=== PATIENT | male | born 1985 | race Caucasian/White ===

== ENCOUNTER 2017-08-08 22:30 | Inpatient (IN) | payer SELFPAY ==
[~2017-08-08] VITALS: Ht 152.4 cm; Wt 65.8 kg
[2017-08-09 00:42] LABS: HEMATOCRIT. 33.5 % (42.0-52.0); HEMOGLOBIN. 10.9 g/dL (14.0-18.0); MEAN CORPUSCULAR HEMOGLOBIN 30.9 pg (28.0-32.0); MEAN CORPUSCULAR VOLUME 95.1 fL (80.0-94.0); MEAN PLATELET VOLUME 8.3 fl (7.4-10.4); RED BLOOD CELL COUNT 3.52 mill/uL (4.7-6.1); RED CELL DISTRIBUTION WIDTH 22.2 % (11.6-14.6)
[2017-08-09 00:44] LABS: CHLORIDE 101 mEq/L (98-107)
[2017-08-09 00:46] LABS: INR 2.5; PROTHROMBIN TIME 26.2 sec (9.4-11.6)
[2017-08-09 00:53] LABS: CARBON DIOXIDE 24 mEq/L (21-32); ETHANOL BLOOD < 10 mg/dL
[2017-08-09] MEDS ORDERED: SODIUM CHLORIDE 0.9% 1,000 ML IV ONE (01:15)
[2017-08-09] MEDS ORDERED: CEFTRIAXONE 1 G PREMIX 50 ML IV ONE (01:15)
[2017-08-09] MEDS ORDERED: KETOROLAC 30MG/ML VIAL IV ONE (01:30)
[2017-08-09 02:05] LABS: CLARITY URINE TURBID (CLEAR); COLOR URINE DARK YELLOW (YELLOW); KETONES URINE NEGATIVE (NEGATIVE); LEUKOCYTE ESTERASE URINE 1+ (NEGATIVE); NITRITE URINE POSITIVE (NEGATIVE); OCCULT BLOOD URINE 2+ (NEGATIVE); PROTEIN URINE 1+ (NEGATIVE); SPECIFIC GRAVITY URINE 1.023 (1.005-1.030)
[2017-08-09 02:28] LABS: *AMPHETAMINES SCREEN URINE NEGATIVE (NEGATIVE); *BARBITURATES SCREEN URINE NEGATIVE (NEGATIVE); *BENZODIAZEPINES SCREEN URINE NEGATIVE (NEGATIVE); *COCAINE SCREEN URINE NEGATIVE (NEGATIVE); CANNABINOID URINE SCREEN NEGATIVE (NEGATIVE); OPIATES URINE SCREEN NEGATIVE (NEGATIVE); PHENCYCLIDINE URINE SCREEN NEGATIVE (NEGATIVE)
[2017-08-09 02:41] LABS: METHADONE URINE SCREEN NEGATIVE (NEGATIVE)
[2017-08-09 06:45] LABS: PLATELET ESTIMATE SLIGHTLY DECREASED
[2017-08-09 06:46] LABS: PLATELET 97 x1000/uL (130-400)
[2017-08-09] MEDS ORDERED: DIPHENHYDRAMINE 50MG/ML VIAL IV PRN (11:45)
[2017-08-09] MEDS ORDERED: GUAIFENESIN 200MG/10ML SUGAR FREE UDC PO PRN (11:45)
[2017-08-09] MEDS ORDERED: NA PHOS,M-B/NA PHOS,DI-BA ENEMA 118ML PR PRN (11:45)
[2017-08-09] MEDS ORDERED: ONDANSETRON HCL 4MG/2ML VIAL IV PRN (11:45)
[2017-08-09] MEDS ORDERED: ACETAMINOPHEN 650MG/20.3ML UDC GT PRN (11:45)
[2017-08-09] MEDS ORDERED: CLONIDINE 0.1MG TABLET PO PRN (11:45)
[2017-08-09] MEDS ORDERED: MORPHINE SULFATE 2 MG/ML CPJ (NOT FOR IM USE) IV PRN (11:45)
[2017-08-09] MEDS ORDERED: IPRATROPIUM/ALBUTEROL 0.5-3(2.5)MG/3ML NEB INH PRN (11:45)
[2017-08-09] MEDS ORDERED: ACETAMINOPHEN 650MG SUPP PR PRN (11:45)
[2017-08-09] MEDS ORDERED: MAGNESIUM/ALUMINUM HYDROXIDE/SIMETHICONE 30ML UDC PO PRN (11:45)
[2017-08-09] MEDS ORDERED: DOCUSATE SODIUM 100MG CAPSULE PO PRN (11:45)
[2017-08-09] MEDS: THIAMINE HCL 100MG TABLET PO SCH (14:36)
[2017-08-09] MEDS: SODIUM CHLORIDE 0.9% INJ 3ML FLUSH IVF SCH (14:36)
[2017-08-09 15:15] VITALS: BP 122/76
[2017-08-09] MEDS ORDERED: INFLUENZA VIRUS VACCINE 0.5ML SYR IM ONE (16:00)
[2017-08-09] MEDS: CEFTRIAXONE 1 G PREMIX 50 ML IV SCH (17:26)
[2017-08-09 20:00] VITALS: BP 113/74
[2017-08-09 20:22] LABS: HEMATOCRIT. 32.7 % (42.0-52.0); HEMOGLOBIN. 10.8 g/dL (14.0-18.0); MEAN CORPUSCULAR HEMOGLOBIN 31.6 pg (28.0-32.0); MEAN CORPUSCULAR VOLUME 95.9 fL (80.0-94.0); MEAN PLATELET VOLUME 8.6 fl (7.4-10.4); PLATELET 102 x1000/uL (130-400); RED BLOOD CELL COUNT 3.41 mill/uL (4.7-6.1); RED CELL DISTRIBUTION WIDTH 22.3 % (11.6-14.6)
[2017-08-09 21:01] LABS: PLATELET ESTIMATE SLIGHTLY DECREASED
[2017-08-09 21:09] LABS: CREATINE KINASE 25 IU/L (39-308); TROPONIN I < 0.02 ng/mL (0.00-0.04)
[2017-08-09 21:23] LABS: CARBON DIOXIDE 20 mEq/L (21-32); CHLORIDE 103 mEq/L (98-107)
[2017-08-10] VITALS: BP 128/70
[2017-08-10 04:00] VITALS: BP 118/68
[2017-08-10 06:32] LABS: HEMATOCRIT. 30.7 % (42.0-52.0); HEMOGLOBIN. 10.4 g/dL (14.0-18.0); MEAN CORPUSCULAR HEMOGLOBIN 32.1 pg (28.0-32.0); MEAN CORPUSCULAR VOLUME 94.5 fL (80.0-94.0); RED BLOOD CELL COUNT 3.25 mill/uL (4.7-6.1); RED CELL DISTRIBUTION WIDTH 22.2 % (11.6-14.6)
[2017-08-10 07:56] LABS: CHLORIDE 105 mEq/L (98-107)
[2017-08-10 08:00] VITALS: BP 102/65
[2017-08-10 08:33] LABS: MEAN PLATELET VOLUME 8.3 fl (7.4-10.4); PLATELET 92 x1000/uL (130-400)
[2017-08-10 09:00] LABS: CARBON DIOXIDE 18 mEq/L (21-32); CREATINE KINASE 18 IU/L (39-308); HDL CHOLESTEROL 10 mg/dL (40-59); LDL CHOLESTEROL 44 mg/dL (5-100); TROPONIN I < 0.02 ng/mL (0.00-0.04)
[2017-08-10] MEDS: FOLIC ACID 1MG TABLET PO SCH (09:57)
[2017-08-10] MEDS: THIAMINE HCL 100MG TABLET PO SCH (09:58)
[2017-08-10 12:00] VITALS: BP 105/68
[2017-08-10 13:45] LABS: PLATELET ESTIMATE SLIGHTLY DECREASED
[2017-08-10] MEDS: PIPERONYL/PYRETHRINS (RID)120 ML SHAMPOO TOP NR ×2 (14:30→15:15)
[2017-08-10] MEDS: AZITHROMYCIN 500 MG in DEXT 5% WATER 250 ML IV SCH (15:27)
[2017-08-10 16:00] VITALS: BP 103/70
[2017-08-10] MEDS ORDERED: VANCOMYCIN 1250MG in DEXTROSE 5% WATER 250ML IV NR (16:00)
[2017-08-10] MEDS ORDERED: MORPHINE SULFATE 4 MG/ML CPJ (NOT FOR IM USE) IV PRN (16:02)
[2017-08-10] MEDS: HYDROCODONE/ACETAMINOPHEN 5/325MG TABLET PO PRN (16:42)
[2017-08-10 20:00] VITALS: BP 118/74
[2017-08-10] MEDS: CEFTRIAXONE 1 G PREMIX 50 ML IV SCH (20:06)
[2017-08-11] VITALS: BP 102/64
[2017-08-11 04:00] VITALS: BP 104/69
[2017-08-11] MEDS: VANCOMYCIN 1 G PREMIX 200 ML IV SCH ×2 (04:45→18:41)
[2017-08-11] MEDS: SODIUM CHLORIDE 0.9% INJ 3ML FLUSH IVF SCH ×2 (04:54→18:01)
[2017-08-11 08:00] VITALS: BP 97/60
[2017-08-11] MEDS: THIAMINE HCL 100MG TABLET PO SCH (09:38)
[2017-08-11] MEDS: FOLIC ACID 1MG TABLET PO SCH (09:38)
[2017-08-11] MEDS ORDERED: PHYTONADIONE 10MG/ML AMP SUBCUT NR (10:30)
[2017-08-11 11:23] LABS: HEMATOCRIT. 31.3 % (42.0-52.0); HEMOGLOBIN. 10.1 g/dL (14.0-18.0); MEAN CORPUSCULAR VOLUME 96.1 fL (80.0-94.0); MEAN PLATELET VOLUME 8.4 fl (7.4-10.4); PLATELET 94 x1000/uL (130-400); RED BLOOD CELL COUNT 3.26 mill/uL (4.7-6.1); RED CELL DISTRIBUTION WIDTH 22.2 % (11.6-14.6)
[2017-08-11 11:30] LABS: INR 2.7
[2017-08-11 11:57] LABS: CARBON DIOXIDE 19 mEq/L (21-32); CHLORIDE 106 mEq/L (98-107)
[2017-08-11 12:00] VITALS: BP 102/65
[2017-08-11] MEDS: AZITHROMYCIN 500 MG in DEXT 5% WATER 250 ML IV SCH (14:11)
[2017-08-11] MEDS: HYDROCODONE/ACETAMINOPHEN 5/325MG TABLET PO PRN (14:12)
[2017-08-11 16:00] VITALS: BP 98/65
[2017-08-11] MEDS: CEFTRIAXONE 1 G PREMIX 50 ML IV SCH (18:05)
[2017-08-11 20:00] VITALS: BP 102/64
[2017-08-11 21:29] LABS: PLATELET ESTIMATE DECREASED
[2017-08-12 00:23] VITALS: BP 101/62
[2017-08-12 04:00] VITALS: BP 112/74
[2017-08-12 08:00] VITALS: BP 104/63
[2017-08-12] MEDS: FOLIC ACID 1MG TABLET PO SCH (09:07)
[2017-08-12] MEDS: THIAMINE HCL 100MG TABLET PO SCH (09:07)
[2017-08-12 10:21] LABS: HEMATOCRIT. 30.2 % (42.0-52.0); HEMOGLOBIN. 9.7 g/dL (14.0-18.0); MEAN CORPUSCULAR HEMOGLOBIN 30.9 pg (28.0-32.0); MEAN CORPUSCULAR VOLUME 95.8 fL (80.0-94.0); RED BLOOD CELL COUNT 3.15 mill/uL (4.7-6.1); RED CELL DISTRIBUTION WIDTH 21.3 % (11.6-14.6)
[2017-08-12 10:46] LABS: CARBON DIOXIDE 21 mEq/L (21-32); CHLORIDE 104 mEq/L (98-107)
[2017-08-12 11:06] LABS: MEAN PLATELET VOLUME 8.3 fl (7.4-10.4); PLATELET 103 x1000/uL (130-400); PLATELET ESTIMATE SLIGHTLY DECREASED
[2017-08-12] MEDS: VANCOMYCIN 1 G PREMIX 200 ML IV SCH (11:21)
[2017-08-12 12:00] VITALS: BP 112/77
[2017-08-12] MEDS: AZITHROMYCIN 500 MG in DEXT 5% WATER 250 ML IV SCH (13:37)
[2017-08-12] MEDS: SODIUM CHLORIDE 0.9% INJ 3ML FLUSH IVF SCH ×2 (13:37→22:09)
[2017-08-12] MEDS ORDERED: POTASSIUM CHLORIDE 20MEQ TABLET SR PO NR (15:30)
[2017-08-12] MEDS ORDERED: PHYTONADIONE 10MG/ML AMP IM NR (15:45)
[2017-08-12 16:00] VITALS: BP 112/77
[2017-08-12] MEDS: PIPERACILLIN/TAZ 2.25G PREMIX 50 ML IV SCH (16:33)
[2017-08-12 16:34] LABS: INR 2.5; PARTIAL THROMBOPLASTIN TIME 47.9 sec (23.4-31.0); PROTHROMBIN TIME 25.6 sec (9.4-11.6)
[2017-08-12 20:00] VITALS: BP 112/69
[2017-08-12] MEDS: VANCOMYCIN 750 MG PREMIX 150 ML IV SCH (22:09)
[2017-08-13] VITALS (7 sets, daily range): BP systolic 95–123; BP diastolic 57–83
[2017-08-13] MEDS: PIPERACILLIN/TAZ 2.25G PREMIX 50 ML IV SCH ×3 (01:52→18:20)
[2017-08-13] MEDS: ACETAMINOPHEN 325MG TABLET PO PRN (02:19)
[2017-08-13] MEDS: SODIUM CHLORIDE 0.9% INJ 3ML FLUSH IVF SCH ×3 (05:35→23:40)
[2017-08-13 07:13] LABS: INR 2.4; PROTHROMBIN TIME 25.4 sec (9.4-11.6)
[2017-08-13 07:35] LABS: HEMATOCRIT. 31.1 % (42.0-52.0); HEMOGLOBIN. 10.5 g/dL (14.0-18.0); MEAN CORPUSCULAR HEMOGLOBIN 32.5 pg (28.0-32.0); MEAN CORPUSCULAR VOLUME 96.4 fL (80.0-94.0); MEAN PLATELET VOLUME 8.4 fl (7.4-10.4); PLATELET 109 x1000/uL (130-400); RED BLOOD CELL COUNT 3.22 mill/uL (4.7-6.1); RED CELL DISTRIBUTION WIDTH 21.3 % (11.6-14.6)
[2017-08-13 08:37] LABS: TOTAL IRON BINDING CAPACITY 124 ug/dL (250-450)
[2017-08-13 08:43] LABS: CARBON DIOXIDE 19 mEq/L (21-32); CHLORIDE 105 mEq/L (98-107)
[2017-08-13] MEDS: VANCOMYCIN 750 MG PREMIX 150 ML IV SCH ×2 (08:51→23:40)
[2017-08-13] MEDS: FOLIC ACID 1MG TABLET PO SCH (08:55)
[2017-08-13] MEDS: THIAMINE HCL 100MG TABLET PO SCH (08:55)
[2017-08-13 08:57] LABS: AMMONIA 58 uMol/L (<32)
[2017-08-13 09:55] LABS: PLATELET ESTIMATE DECREASED
[2017-08-13 11:45] LABS: VITAMIN B12 SERUM > 2000.0 pg/mL (211-911)
[2017-08-13] MEDS: LACTULOSE 20G/30ML UDC PO SCH (12:56)
[2017-08-13 15:12] LABS: FERRITIN 196 ng/mL (22-322)
[2017-08-13 17:01] LABS: BG BASE EXCESS -5.2 mmol/L (-2.0-2.0); BG CARBOXYHEMOGLOBIN 0.9 % (0.5-1.5); BG DEOXYHEMOGLOBIN 3.1 % (0.0-5.0); BG FRACTION INSPIRED OXYGEN 28; BG HCO3 ACT 18.3 mmol/L (22.0-26.0); BG METHEMOGLOBIN 0.1 % (0.0-1.5); BG OXYGEN SATURATION 96.9 % (92.0-98.5); BG OXYHEMOGLOBIN 95.9 % (94.0-97.0); BG PCO2 29.5 mmHg (35.0-45.0); BG PH 7.411 (7.350-7.450); BG PO2 90.9 mmHg (75.0-100.0); BG SAMPLE SITE RIGHT BRACHIAL; BG TOTAL HEMOGLOBIN 11.3 g/dL (12.0-18.0); BG VENT MODE NASAL CANNULA
[2017-08-14] MEDS: PIPERACILLIN/TAZ 2.25G PREMIX 50 ML IV SCH ×3 (01:59→18:02)
[2017-08-14 04:52] VITALS: BP 113/74
[2017-08-14 08:00] VITALS: BP 130/60
[2017-08-14] MEDS: FOLIC ACID 1MG TABLET PO SCH (10:33)
[2017-08-14] MEDS: LACTULOSE 20G/30ML UDC PO SCH (10:33)
[2017-08-14] MEDS: THIAMINE HCL 100MG TABLET PO SCH (10:33)
[2017-08-14 12:00] VITALS: BP 120/80
[2017-08-14 12:36] LABS: MEAN CORPUSCULAR HEMOGLOBIN 32.3 pg (28.0-32.0); MEAN CORPUSCULAR VOLUME 96.6 fL (80.0-94.0); MEAN PLATELET VOLUME 8.3 fl (7.4-10.4); PLATELET 108 x1000/uL (130-400); RED BLOOD CELL COUNT 3.11 mill/uL (4.7-6.1); RED CELL DISTRIBUTION WIDTH 21.5 % (11.6-14.6)
[2017-08-14 12:45] LABS: INR 1.9; PARTIAL THROMBOPLASTIN TIME 42.7 sec (23.4-31.0); PROTHROMBIN TIME 19.9 sec (9.4-11.6)
[2017-08-14 12:56] LABS: AMMONIA <10 uMol/L (<32)
[2017-08-14 13:02] LABS: CARBON DIOXIDE 20 mEq/L (21-32); CHLORIDE 104 mEq/L (98-107)
[2017-08-14 13:42] LABS: PLATELET ESTIMATE SLIGHTLY DECREASED
[2017-08-14] MEDS: SODIUM CHLORIDE 0.9% INJ 3ML FLUSH IVF SCH ×2 (13:58→22:00)
[2017-08-14] MEDS: VANCOMYCIN 750 MG PREMIX 150 ML IV SCH (13:58)
[2017-08-14] MEDS ORDERED: LIDOCAINE HCL 1% 20ML VIAL (Pyxis) INJ ONE (14:45)
[2017-08-14] MEDS ORDERED: SODIUM BICARBONATE 4% (2.4MEQ) 5ML VIAL IV ONE (14:46)
[2017-08-15] MEDS: PIPERACILLIN/TAZ 2.25G PREMIX 50 ML IV SCH ×3 (02:17→17:31)
[2017-08-15 04:15] LABS: PROTHROMBIN TIME 21.2 sec (9.4-11.6)
[2017-08-15 04:21] LABS: AMMONIA < 10 uMol/L (<32)
[2017-08-15 04:23] LABS: CARBON DIOXIDE 21 mEq/L (21-32); CHLORIDE 105 mEq/L (98-107)
[2017-08-15] MEDS: SODIUM CHLORIDE 0.9% INJ 3ML FLUSH IVF SCH ×3 (05:33→23:11)
[2017-08-15 08:00] VITALS: BP 96/46
[2017-08-15] MEDS: FOLIC ACID 1MG TABLET PO SCH (09:32)
[2017-08-15] MEDS: THIAMINE HCL 100MG TABLET PO SCH (09:32)
[2017-08-15] MEDS: LACTULOSE 20G/30ML UDC PO SCH (09:33)
[2017-08-15 11:15] LABS: INR 2.3; PARTIAL THROMBOPLASTIN TIME 47.6 sec (23.4-31.0)
[2017-08-15 12:00] VITALS: BP 102/62
[2017-08-15 12:02] LABS: HEMATOCRIT. 29.6 % (42.0-52.0); HEMOGLOBIN. 9.6 g/dL (14.0-18.0); MEAN CORPUSCULAR HEMOGLOBIN 31.7 pg (28.0-32.0); MEAN CORPUSCULAR VOLUME 97.9 fL (80.0-94.0); MEAN PLATELET VOLUME 8.6 fl (7.4-10.4); PLATELET 99 x1000/uL (130-400); RED BLOOD CELL COUNT 3.02 mill/uL (4.7-6.1); RED CELL DISTRIBUTION WIDTH 21.1 % (11.6-14.6)
[2017-08-15 12:09] LABS: CHLORIDE 106 mEq/L (98-107)
[2017-08-15 12:17] LABS: CARBON DIOXIDE 21 mEq/L (21-32)
[2017-08-15 16:00] VITALS: BP 93/55
[2017-08-15] MEDS ORDERED: POTASSIUM CHLORIDE 20MEQ TABLET SR PO NR (17:00)
[2017-08-15 20:00] VITALS: BP 93/58
[2017-08-15] MEDS: VANCOMYCIN 1 G PREMIX 200 ML IV SCH (23:10)
[2017-08-16] VITALS: BP 109/62
[2017-08-16] MEDS: PIPERACILLIN/TAZ 2.25G PREMIX 50 ML IV SCH ×3 (03:22→18:04)
[2017-08-16 04:00] VITALS: BP 97/62
[2017-08-16] MEDS: SODIUM CHLORIDE 0.9% INJ 3ML FLUSH IVF SCH ×2 (05:56→15:43)
[2017-08-16 07:03] LABS: HEMATOCRIT 28.6 % (42.0-52.0); HEMOGLOBIN 9.6 g/dL (14.0-18.0); MEAN CORPUSCULAR HEMOGLOBIN 32.5 pg (28.0-32.0); MEAN CORPUSCULAR VOLUME 96.5 fL (80.0-94.0); RED BLOOD CELL COUNT 2.96 mill/uL (4.7-6.1); RED CELL DISTRIBUTION WIDTH 20.8 % (11.6-14.6)
[2017-08-16 07:14] LABS: PLATELET 94 x1000/uL (130-400)
[2017-08-16 08:00] VITALS: BP 98/57
[2017-08-16 08:37] LABS: AMMONIA < 10 uMol/L (<32)
[2017-08-16] MEDS: FOLIC ACID 1MG TABLET PO SCH (09:38)
[2017-08-16] MEDS: LACTULOSE 20G/30ML UDC PO SCH (09:38)
[2017-08-16] MEDS: THIAMINE HCL 100MG TABLET PO SCH (09:39)
[2017-08-16 12:00] VITALS: BP 102/64
[2017-08-16 14:32] LABS: PLATELET ESTIMATE SLIGHTLY DECREASED
[2017-08-16 16:00] VITALS: BP 101/62
[2017-08-16 20:00] VITALS: BP 106/63
[2017-08-17] VITALS: BP 103/63
[2017-08-17] MEDS: SODIUM CHLORIDE 0.9% INJ 3ML FLUSH IVF SCH ×3 (00:07→23:34)
[2017-08-17] MEDS: VANCOMYCIN 1 G PREMIX 200 ML IV SCH ×2 (00:07→23:29)
[2017-08-17] MEDS: PIPERACILLIN/TAZ 2.25G PREMIX 50 ML IV SCH ×3 (01:53→17:42)
[2017-08-17 04:00] VITALS: BP 95/59
[2017-08-17 06:25] LABS: HEMATOCRIT 29.2 % (42.0-52.0); HEMOGLOBIN 9.6 g/dL (14.0-18.0); MEAN CORPUSCULAR HEMOGLOBIN 31.8 pg (28.0-32.0); PLATELET 89 x1000/uL (130-400); RED BLOOD CELL COUNT 3.01 mill/uL (4.7-6.1); RED CELL DISTRIBUTION WIDTH 20.1 % (11.6-14.6)
[2017-08-17 07:42] LABS: AMMONIA < 10 uMol/L (<32)
[2017-08-17 08:00] VITALS: BP 100/61
[2017-08-17] MEDS: LACTULOSE 20G/30ML UDC PO SCH (09:35)
[2017-08-17] MEDS: FOLIC ACID 1MG TABLET PO SCH (09:35)
[2017-08-17] MEDS: THIAMINE HCL 100MG TABLET PO SCH (09:37)
[2017-08-17 12:00] VITALS: BP 102/64
[2017-08-17] MEDS ORDERED: FLUCONAZOLE 200MG TABLET PO NR (14:30)
[2017-08-17 16:00] VITALS: BP 100/62
[2017-08-17] MEDS ORDERED: PHYTONADIONE 10MG/ML AMP PO NR (16:13)
[2017-08-17 20:00] VITALS: BP 114/64
[2017-08-17] MEDS: ACETAMINOPHEN 325MG TABLET PO PRN (20:30)
[2017-08-18] VITALS: BP 98/59
[2017-08-18] MEDS: VANCOMYCIN HCL 1000 MG/20 ML ORAL PO SCH ×4 (00:54→17:53)
[2017-08-18] MEDS: PIPERACILLIN/TAZ 2.25G PREMIX 50 ML IV SCH ×3 (02:14→17:54)
[2017-08-18 04:00] VITALS: BP 93/51
[2017-08-18] MEDS: SODIUM CHLORIDE 0.9% INJ 3ML FLUSH IVF SCH ×3 (05:48→21:05)
[2017-08-18 07:33] LABS: HEMATOCRIT. 28.1 % (42.0-52.0); HEMOGLOBIN. 9.2 g/dL (14.0-18.0); MEAN CORPUSCULAR HEMOGLOBIN 31.9 pg (28.0-32.0); MEAN CORPUSCULAR VOLUME 97.6 fL (80.0-94.0); MEAN PLATELET VOLUME 8.4 fl (7.4-10.4); PLATELET 86 x1000/uL (130-400); RED BLOOD CELL COUNT 2.88 mill/uL (4.7-6.1); RED CELL DISTRIBUTION WIDTH 19.9 % (11.6-14.6)
[2017-08-18 08:00] VITALS: BP 95/54
[2017-08-18 08:07] LABS: CARBON DIOXIDE 17 mEq/L (21-32); CHLORIDE 107 mEq/L (98-107)
[2017-08-18] MEDS: FOLIC ACID 1MG TABLET PO SCH (08:11)
[2017-08-18] MEDS: THIAMINE HCL 100MG TABLET PO SCH (08:11)
[2017-08-18] MEDS: LACTULOSE 20G/30ML UDC PO SCH (08:15)
[2017-08-18 12:00] VITALS: BP 99/49
[2017-08-18 13:29] LABS: PLATELET ESTIMATE DECREASED
[2017-08-18 16:00] VITALS: BP 103/59
[2017-08-18 20:00] VITALS: BP 99/61
[2017-08-18] MEDS ORDERED: POTASSIUM CHLORIDE 20MEQ TABLET SR PO NR (21:00)
[2017-08-19] MEDS: VANCOMYCIN HCL 1000 MG/20 ML ORAL PO SCH ×4 (00:10→17:12)
[2017-08-19] MEDS: PIPERACILLIN/TAZ 2.25G PREMIX 50 ML IV SCH ×2 (01:33→11:04)
[2017-08-19 04:00] VITALS: BP 103/66
[2017-08-19] MEDS: SODIUM CHLORIDE 0.9% INJ 3ML FLUSH IVF SCH ×3 (05:48→21:06)
[2017-08-19 08:00] VITALS: BP 96/62
[2017-08-19] MEDS: FOLIC ACID 1MG TABLET PO SCH (08:16)
[2017-08-19] MEDS: LACTULOSE 20G/30ML UDC PO SCH ×2 (08:16→08:20)
[2017-08-19] MEDS: THIAMINE HCL 100MG TABLET PO SCH (08:17)
[2017-08-19 12:00] VITALS: BP_SYST 95; BP_SYST 98; BP_DIAS 59; BP_DIAS 63
[2017-08-19] MEDS ORDERED: VANCOMYCIN HCL 1000 MG/20 ML ORAL PO SCH (12:00)
[2017-08-19 12:04] LABS: HEPATITIS B SURFACE ANTIGEN NEGATIVE
[2017-08-19 12:31] LABS: HEPATITIS B CORE AB IGM NEGATIVE
[2017-08-19 12:33] LABS: HEPATITIS A AB IGM NEGATIVE (NEGATIVE)
[2017-08-19 16:00] VITALS: BP 98/63
[2017-08-19 19:30] LABS: BASOPHILS % 1.1 % (0.0-2.0); HEMATOCRIT. 29.7 % (42.0-52.0); LYMPHOCYTES % 4.9 % (20.0-50.0); MEAN CORPUSCULAR HEMOGLOBIN 32.9 pg (28.0-32.0); MEAN CORPUSCULAR VOLUME 97.9 fL (80.0-94.0); MEAN PLATELET VOLUME 8.3 fl (7.4-10.4); MONOCYTES % 5.6 % (2.0-8.0); NEUTROPHILS % 83.4 % (40.0-76.0); PLATELET 89 x1000/uL (130-400); RED BLOOD CELL COUNT 3.03 mill/uL (4.7-6.1); RED CELL DISTRIBUTION WIDTH 19.6 % (11.6-14.6)
[2017-08-19 19:53] LABS: CARBON DIOXIDE 19 mEq/L (21-32); CHLORIDE 106 mEq/L (98-107)
[2017-08-19 20:00] VITALS: BP 100/65
[2017-08-20] VITALS: BP 102/64
[2017-08-20] MEDS: VANCOMYCIN HCL 1000 MG/20 ML ORAL PO SCH ×5 (02:35→23:43)
[2017-08-20 04:00] VITALS: BP 96/58
[2017-08-20] MEDS: SODIUM CHLORIDE 0.9% INJ 3ML FLUSH IVF SCH ×3 (06:05→21:08)
[2017-08-20 08:00] VITALS: BP 94/61
[2017-08-20] MEDS: LACTULOSE 20G/30ML UDC PO SCH (08:18)
[2017-08-20] MEDS: THIAMINE HCL 100MG TABLET PO SCH (08:26)
[2017-08-20] MEDS: FOLIC ACID 1MG TABLET PO SCH (08:26)
[2017-08-20 12:00] VITALS: BP 98/62
[2017-08-20] MEDS ORDERED: LEVO500T2 PO (15:44)
[2017-08-20 16:00] VITALS: BP 106/63
[2017-08-20 17:34] LABS: HEMATOCRIT. 29.8 % (42.0-52.0); HEMOGLOBIN. 9.8 g/dL (14.0-18.0); MEAN CORPUSCULAR HEMOGLOBIN 31.9 pg (28.0-32.0); MEAN CORPUSCULAR VOLUME 97.4 fL (80.0-94.0); MEAN PLATELET VOLUME 8.2 fl (7.4-10.4); PLATELET 92 x1000/uL (130-400); RED BLOOD CELL COUNT 3.06 mill/uL (4.7-6.1); RED CELL DISTRIBUTION WIDTH 19.6 % (11.6-14.6)
[2017-08-20 17:48] LABS: CARBON DIOXIDE 18 mEq/L (21-32); CHLORIDE 109 mEq/L (98-107)
[2017-08-20 17:51] LABS: PLATELET ESTIMATE DECREASED
[2017-08-20 20:00] VITALS: BP 100/66
[2017-08-21] VITALS: BP 102/61
[2017-08-21 04:00] VITALS: BP 100/64
[2017-08-21] MEDS: VANCOMYCIN HCL 1000 MG/20 ML ORAL PO SCH ×2 (05:47→12:27)
[2017-08-21] MEDS: SODIUM CHLORIDE 0.9% INJ 3ML FLUSH IVF SCH ×2 (05:48→14:00)
[2017-08-21] MEDS: LACTULOSE 20G/30ML UDC PO SCH (08:39)
[2017-08-21] MEDS: THIAMINE HCL 100MG TABLET PO SCH (08:39)
[2017-08-21] MEDS: FOLIC ACID 1MG TABLET PO SCH (08:39)
[2017-08-21 11:59] VITALS: BP 99/57
[2017-08-21] MEDS ORDERED: VANCOMYCIN HCL 1 GM/VIAL PO SCH (18:00)
== END 2017-08-21 16:03 | disposition home or self-care (01) | DRG 710 ==
LOC: ER 22:33 → 6EST 08-09 01:46 → ENRESERV 08-09 09:03 → ER 08-09 10:32 → 6EST 08-09 11:38
PROVIDERS: ADMIT Family Medicine; ATTEND Family Medicine
PROC: 0W9G3ZX Drainage of Peritoneal Cavity, Percutaneous Approach, Diagnostic (ICD-10-PCS; principal; 2017-08-14)
DX: A41.9 Sepsis, unspecified organism (principal); J90 Pleural effusion, not elsewhere classified; N17.9 Acute kidney failure, unspecified; J18.9 Pneumonia, unspecified organism; K83.1 Obstruction of bile duct; D68.4 Acquired coagulation factor deficiency; E46 Unspecified protein-calorie malnutrition; K81.0 Acute cholecystitis; D69.59 Other secondary thrombocytopenia; B85.2 Pediculosis, unspecified; D18.03 Hemangioma of intra-abdominal structures; K52.9 Noninfective gastroenteritis and colitis, unspecified; D63.8 Anemia in other chronic diseases classified elsewhere; R16.2 Hepatomegaly with splenomegaly, not elsewhere classified; D75.89 Other specified diseases of blood and blood-forming organs; F10.10 Alcohol abuse, uncomplicated; I10 Essential (primary) hypertension; K21.9 Gastro-esophageal reflux disease without esophagitis; K70.31 Alcoholic cirrhosis of liver with ascites; K72.90 Hepatic failure, unspecified without coma; K86.89 Other specified diseases of pancreas; N39.0 Urinary tract infection, site not specified; Z59.0 Homelessness; Z79.899 Other long term (current) drug therapy; Z68.28 Body mass index [BMI] 28.0-28.9, adult; Z71.41 Alcohol abuse counseling and surveillance of alcoholic
CPT/HCPCS: 36415; 36600; 49083; 71010; 71045; 71250; 74176; 76700; 76705; 80053; 80061; 80076; 80202; 80305; 81001; 82105; 82140; 82248; 82270; 82375; 82550; 82607; 82728; 82746; 82805; 83540; 83550; 83605; 83690; 83921; 84145; 84484; 85025; 85027; 85540; 85610; 85730; 86705; 86709; 86803; 86850; 86900; 86927; 87040; 87070; 87086; 87205; 87340; 89050; 90686; 96361; 96365; 96366; 96375; 97162; 99285; G0482; J0456; J0696; J1885; J2270; J2543; J3370; J3430; J3490; J7030; J7040; J7050; J7060; P9017